=== PATIENT | female | born 1990 | race African-American/Black ===

== ENCOUNTER 2022-08-25 16:40 | Emergency (ER) | payer MEDICAID, OTHER ==
[~2022-08-25] VITALS: Ht 172.7 cm; Wt 84.0 kg
[2022-08-25] MEDS ORDERED: IBUPROFEN 600MG TABLET PO ONE (17:00)
[2022-08-25 19:19] LABS: BASOPHILS % 0.3 % (0.0-2.0); EOSINOPHILS % 1.2 % (0.0-5.0); HEMATOCRIT. 41.7 % (36.0-48.0); HEMOGLOBIN. 13.5 g/dL (12.0-16.0); LYMPHOCYTES % 29.5 % (20.0-50.0); MEAN CORPUSCULAR HEMOGLOBIN 26.6 pg (28.0-32.0); MEAN CORPUSCULAR VOLUME 82.2 fL (81.0-99.0); MEAN PLATELET VOLUME 10.2 fl (7.4-10.4); MONOCYTES % 6.9 % (2.0-8.0); NEUTROPHILS % 62.1 % (40.0-76.0); PLATELET 244 x1000/uL (130-400); RED BLOOD CELL COUNT 5.07 mill/uL (4.2-5.4); RED CELL DISTRIBUTION WIDTH 14.1 % (11.6-14.6)
[2022-08-25 19:26] LABS: CHLORIDE 104 mEq/L (98-107)
[2022-08-25 19:28] LABS: HCG SCREEN NEGATIVE
[2022-08-25 19:34] LABS: ETHANOL BLOOD < 10 mg/dL
[2022-08-25] MEDS ORDERED: IBUP-2029 MT (19:56)
[2022-08-25] MEDS ORDERED: ACETAMINOPHEN 325MG TABLET PO ONE (20:00)
[2022-08-25 20:15] VITALS: BP 125/78
[2022-08-25 21:07] LABS: *AMPHETAMINES SCREEN URINE NEGATIVE (NEGATIVE); *BARBITURATES SCREEN URINE NEGATIVE (NEGATIVE); *BENZODIAZEPINES SCREEN URINE NEGATIVE (NEGATIVE); *COCAINE SCREEN URINE NEGATIVE (NEGATIVE); CANNABINOID URINE SCREEN NEGATIVE (NEGATIVE); METHADONE URINE SCREEN NEGATIVE (NEGATIVE); OPIATES URINE SCREEN NEGATIVE (NEGATIVE); PHENCYCLIDINE URINE SCREEN NEGATIVE (NEGATIVE)
== END 2022-08-25 20:18 | disposition home or self-care (01) ==
LOC: ER 16:40
DX: S00.83XA Contusion of other part of head, initial encounter (principal); S09.8XXA Other specified injuries of head, initial encounter; R55 Syncope and collapse; W22.8XXA Striking against or struck by other objects, initial encounter; Y93.89 Activity, other specified; Y92.89 Other specified places as the place of occurrence of the external cause; Y99.8 Other external cause status
CPT/HCPCS: 36415; 70486; 80053; 80305; 80320; 81025; 84703; 85025; 93005; 99285; G0480